=== PATIENT | female | born 1955 | race African-American/Black ===

== ENCOUNTER → 2016-11-24 | Day surgery (SDC) | payer OTHER, MEDICARE ==
[~2016-11-24] VITALS: Ht 157.5 cm; Wt 90.7 kg
[~2016-11-24] MED LIST: DELTASONE20 MG PO
--- NOTE | 2016-11-24 08:18 | MAMMOGRAPHY REPORT ---
EXAMINATION: MM GUIDED NEEDLE LOCALIZATION BREAST, RIGHT CLINICAL INFORMATION: Preoperative localization for excision of complex sclerosing papillary lesion in the subareolar right breast. COMPARISON: Ultrasound-guided biopsy and post procedure mammogram dated 10/22/2016. TECHNIQUE NEEDLE LOC: Proper informed consent is obtained from the patient after discussion of the procedure, potential risks and complications, and alternatives including declining the procedure today. Patient was given an opportunity for questions. The patient appeared to understand. The patient consented to the procedure and signed the consent form. GUIDANCE: Digital mammography. APPROACH: Superior. TARGET: Biopsy clip in the subareolar right breast. ANESTHESIA: 10 mL lidocaine 2%. LOCALIZATION MARKER: Kopans 5 cm needle. The skin was prepped and local anesthesia administered. The needle was positioned and position assessed with mammography. The wire was hooked into position. The patient tolerated the procedure well and had no immediate complication. Diagram was marked for the surgeon. The target is centered around the thick segment of the wire, 3.5 cm deep to the skin with 11 cm of the wire remaining external to the skin. IMPRESSION: Status post right breast needle localization with wire hooked into position. The target is centered around the thick segment of the wire, 3.5 cm deep to the skin with 11 cm of the wire remaining external to the skin.
--- NOTE | 2016-11-24 10:36 | Operative Report ---
Operative/Inv Procedure Report Surgery Date: 11/24/16 Name of Procedure: Breast biopsy with wire localization and nipple exploration Pre-Operative Diagnosis: Complex causing papillary lesion, nipple discharge Post-Operative Diagnosis: Same Estimated Blood Loss: scant Surgeon/Pick Pulling Machine Operator: CELESTE FLORES MD Anesthesia: local monitored anesthesi Specimens: Right breast biopsy Operative/Procedure Note Note: Patient has persistent copious nipple discharge from a single duct. She underwent imaging which revealed a mass. Biopsy revealed a complex sclerosing papillary lesion. Recommendation was for excision of the complex sclerosing papillary lesion as well as duct excision. Patient underwent wire localization preoperatively and those films were reviewed. She was given 2 g of Ancef and placed under anesthesia. The right breast prepped and draped in a sterile fashion ChloraPrep. Local anesthesia 1% lidocaine exception Marcaine was given and a curvilinear incision was made in the periareolar position. The abnormal duct was identified and was probed with a lacrimal duct probe. The duct was identified through the incision at the nipple. The duct was transected and a 4-0 suture was placed in the distal duct. The duct was dissected and plan for excision. The wire was brought into the incision and the area where the clip was was dissected as well. These specimens were removed en bloc. Margin map was used to omar the specimen orientation. The skin marker was placed at the distal duct. Hemostasis achieved using electrocautery. Intraoperative x-ray confirmed presence of the clip in the specimen. The tissue was approximated using interrupted Vicryl sutures, and the skin was closed using a running Biosyn subcuticular stitch. Steri-Strips and sterile dressings were applied, the patient was transferred to the recovery room in satisfactory condition having tolerated the procedure well.
--- NOTE | 2016-11-25 13:47 | MAMMOGRAPHY REPORT ---
EXAMINATION: MM NEEDLE LOCALIZATION SPECIMEN FROM THE BREAST, RIGHT CLINICAL INDICATION: Excision of complex sclerosing papillary lesion from the subareolar right breast. COMPARISON: Preoperative needle localization films from 11/24/2016. TECHNIQUE: Single frontal radiograph of the excisional biopsy specimen was obtained. FINDINGS: The radiograph of the excised surgical specimen shows that the hookwire is delivered intact and the marker clip and calcifications are identified in the specimen. IMPRESSION: Satisfactory excision of the targeted lesion. These findings were communicated to the surgeon in the OR at the time of specimen radiography.
== END ==
LOC: STS 03:43 → CBW.IIU 07:00 → STS 07:00 → CBW.IIU 09:00 → CBW.MAMMO 09:30
DX: N60.81 Other benign mammary dysplasias of right breast (principal); E11.9 Type 2 diabetes mellitus without complications; Z79.4 Long term (current) use of insulin; Z85.038 Personal history of other malignant neoplasm of large intestine
CPT/HCPCS: J0690; J2001; J2250